=== PATIENT | female | born 1945 | race Caucasian/White ===

== ENCOUNTER 2016-10-24 18:30 | Emergency (ER) | payer MEDICARE ==
[2016-10-24 20:19] VITALS: BP 201/89
[2016-10-24] MEDS ORDERED: Sodium Chloride 0.9% 10 ML Syringe FLUSH PRN (20:27)
[2016-10-24] MEDS ORDERED: HYDROmorphone 0.5 MG/0.5 ML Syringe IVPUSH ONE (20:27)
--- NOTE | 2016-10-24 21:52 | EDM.PDOC ---
ED HPI Trauma - General Chief Complaint: Upper Extremity Injury/Pain Stated Complaint: RIGHT ARM PAIN Time Seen by Provider: 10/24/16 20:20 Source: Reports: Patient, Family History Limitations: Reports: No limitations - History of Present Illness INITIAL COMMENTS - FREE TEXT/NARRATIVE: pT WAS ON THE TREADMI[place] AND IT STARTED GOING VERY FAST. iT PULLED ON HER ARM. sHE NOW FELS LIKE HER RT ARM IS DISLOCATED. Occurred When: just prior to arrival Occurred Where: home Method of Injury: other ( PULLED ON THE ARM WHEN SHE WAS ON THE TREADMI[employer]. ) Severity: mild Pain/Injury Location: Reports: upper extremity, right Consciousness: Reports: no loss of consciousness Associated Symptoms: Reports: denies other symptoms Allergies/ADRs: Allergies clindamycin [From Cleocin] Allergy (Verified 07/13/16 06:57) Irritability Home Medications: Ambulatory Orders Aspirin [Frances Chewable Aspirin] 81 mg PO DAILY 09/08/15 [Confirmed 10/24/16] Beta-Carotene(A) w/C & E/Zn/Cu [I-Bonifacio Protect] 1 tab PO DAILY 09/08/15 [ Confirmed 10/24/16] Calcium Carbonate/Vitamin D3 [Caltrate 600+D 1500 MG-400 Units] 400 - 600 mg PO BID 09/08/15 [Confirmed 10/24/16] Cholecalciferol (Vitamin D3) [Vitamin D3] 1,000 units PO DAILY 09/08/15 [ Confirmed 10/24/16] Citalopram [Citalopram HBr] 20 mg PO DAILY 09/08/15 [Confirmed 10/24/16] Gluc 2KCl/Chondr/Juan Francisco Hy/Hy Ac [Glucosamine & Chondroitin Cap] 1 tab PO DAILY [Confirmed 10/24/16] Hydrochlorothiazide 25 mg PO DAILY 09/08/15 [Confirmed 10/24/16] Ibuprofen [Advil] 200 mg PO Q6HR PRN 09/08/15 [Confirmed 10/24/16] Loratadine 10 mg PO DAILY 09/08/15 [Confirmed 10/24/16] Metoprolol Succinate [Toprol XL 100mg] 100 mg PO DAILY 09/08/15 [Confirmed 10/24] Multivitamin/Iron/Folic Acid [Centrum Complete Multivit] 1 tab PO DAILY [Confirmed 10/24/16] atorvaSTATin [Lipitor] 10 mg PO DAILY 09/08/15 [Confirmed 10/24/16] Hydrocodone/Acetaminophen [[place]ers 5-325] 5 - 325 mg PO TID PRN 10/05/15 [ Confirmed 10/24/16] amLODIPine [Norvasc] 5 mg PO DAILY 10/05/15 [Confirmed 10/24/16] Latanoprost [Xalatan] 1 drop EYEBOTH BEDTIME 07/11/16 [Confirmed 10/24/16] Montelukast [Singulair] 10 mg PO BEDTIME 07/11/16 [Confirmed 10/24/16] Nystatin [Nystatin Crm] 1 applic TOP BID 07/11/16 [Confirmed 10/24/16] Past Medical History HEENT History: Reports: Allergic rhinitis, Cataract, Glaucoma, Impaired vision, Macular degeneration Cardiovascular History: Reports: High cholesterol, Hypertension Respiratory History: Reports: Other (see below) Other Respiratory History: pneumonia Gastrointestinal History: Reports: None Genitourinary History: Reports: Urinary incontinence Musculoskeletal History: Reports: Arthritis, Fracture, Osteoporosis, Other (see below) Other Musculoskeletal History: hammer toe left Psychiatric History: Reports: Anxiety Endocrine/Metabolic History: Reports: Osteoporosis - Infectious Disease History Infectious Disease History: Reports: Chicken pox, Measles, Mumps, Pertussis ( whooping cough) - Past Surgical History HEENT Surgical History: Reports: Cataract surgery, Laser surgery, Tonsillectomy Cardiovascular Surgical History: Reports: None Respiratory Surgical History: Reports: None GI Surgical History: Reports: Appendectomy, Cholecystectomy, Colonoscopy Female Surgical History: Reports: None Endocrine Surgical History: Reports: None Musculoskeletal Surgical History: Reports: Shoulder surgery Social & Family History - Family History Family Medical History: Noncontributory - Tobacco Use Smoking Status *Q: Never Smoker Second Hand Smoke Exposure: No - Caffeine Use Caffeine Use: Reports: Coffee - Alcohol Use Days Per Week of Alcohol Use: 2 Number of Drinks Per Day: 1 Total Drinks Per Week: 2 - Recreational Drug Use Recreational Drug Use: No Review of Systems - Review of Systems Review Of Systems: See Below Constitutional: Reports: no symptoms Eyes: Reports: no symptoms Ears: Reports: no symptoms Nose: Reports: no symptoms Mouth/Throat: Reports: no symptoms Respiratory: Reports: no symptoms Cardiovascular: Reports: no symptoms GI/Abdominal: Reports: No symptoms Genitourinary: Reports: no symptoms Musculoskeletal: Reports: other (PAINFUL RT SHOULDER. ) Skin: Reports: no symptoms Neurological: Reports: no symptoms Trauma Exam - Physical Exam Exam: See Below Text/Narrative:: pT ARRIVED WITH A PAINFUL RT SHOULDER. tHIS IS OBVIOUSLY DISLOCATED. Exam Limited By: No limitations General Appearance: Reports: alert Head: Reports: atraumatic Eyes: bilateral eye: EOMI, normal inspection, PERRL Ears: Reports: normal TMs Nose: Reports: normal inspection Throat/Mouth: Reports: Normal inspection Neck: Reports: normal inspection Respiratory Exam: Reports: no respiratory distress Cardiovascular: Reports: regular rate, rhythm Extremities: Reports: other (PT HAS A OBVIOUS DEFORMITY OF THE RT SHOULDER AND ON XRAY IT IS DISLOCATED. ) Neurologic: Reports: alert Course - Vital Signs Last Recorded V/S: Last Vital Signs Temp 36.8 C 10/24/16 21:49 Pulse 63 10/24/16 21:49 Resp 18 10/24/16 21:49 BP 201/89 H 10/24/16 21:49 Pulse Ox 98 10/24/16 21:49 - Orders/Labs/Meds Orders: Active Orders 24 hr Category Date Time Status Shoulder 1V Rt [CR] Stat Exams 10/24/16 22:09 Taken Shoulder Comp Rt [CR] Stat Exams 10/24/16 20:26 Taken Sodium Chloride 0.9% [Saline Flush] Med 10/24/16 20:27 Active 10 ml FLUSH ASDIRECTED PRN Saline Lock Insert [OM.PC] Routine Oth 10/24/16 20:27 Ordered Medication Orders Sodium Chloride (Saline Flush) 10 ml FLUSH ASDIRECTED PRN PRN Reason: Keep Vein Open Last Admin: 10/24/16 21:06 Dose: 10 ml Meds: Medications Generic Name Dose Route Start Last Admin Trade Name Freq PRN Reason Stop Dose Admin Sodium Chloride 10 ml 10/24/16 20:27 10/24/16 21:06 Saline Flush FLUSH 10 ml ASDIRECTED PRN Administration Keep Vein Open Discontinued Medications Generic Name Dose Route Start Last Admin Trade Name Freq PRN Reason Stop Dose Admin Hydromorphone HCl 0.5 mg 10/24/16 20:27 10/24/16 21:07 Dilaudid IVPUSH 10/24/16 20:28 0.5 mg ONETIME ONE Administration Propofol Confirm 10/24/16 22:22 Diprivan 20 Ml Administered 10/24/16 22:23 Dose 200 mg .ROUTE .STK-MED ONE - Re-Assessments/Exams Free Text/Narrative Re-Assessment/Exam: 10/24/16 22:49 Dennys from anesthia sedated the pt and with out difficulty the rt shoulder was reduced. A post reduction film was obtained which looked good. A shoulder imoblizer was applied and she will see ortho in the next 2 days. Departure - Departure Time of Disposition: 22:50 Disposition: DC/Tfer to Hospice - Home 50 Condition: fair Clinical Impression: Dislocation of shoulder, right, closed Forms: ED Department Discharge Care Plan Goals: motrin and norco for pain, use the shoulder imoblizer until she sees ortho. appt with ortho in 2 days. - My Orders Last 24 Hours: My Active Orders 10/24/16 20:26 Shoulder Comp Rt [CR] Stat 10/24/16 20:27 Sodium Chloride 0.9% [Saline Flush] 10 ml FLUSH ASDIRECTED PRN Saline Lock Insert [OM.PC] Routine 10/24/16 22:09 Shoulder 1V Rt [CR] Stat - Assessment/Plan Last 24 Hours: My Active Orders 10/24/16 20:26 Shoulder Comp Rt [CR] Stat 10/24/16 20:27 Sodium Chloride 0.9% [Saline Flush] 10 ml FLUSH ASDIRECTED PRN Saline Lock Insert [OM.PC] Routine 10/24/16 22:09 Shoulder 1V Rt [CR] Stat
[2016-10-24] MEDS ORDERED: Propofol 200 MG/20 ML SDV ONE (22:22)
--- NOTE | 2016-10-25 08:53 | CR ---
Shoulder Comp Rt HISTORY: Possible dislocation. COMPARISON: None FINDINGS: Anterior inferior dislocation of the right shoulder. Well-corticated bony densities projec landy adjacent to the glenoid likely representing old trauma or accessory ossification.
--- NOTE | 2016-10-25 08:53 | CR ---
Shoulder 1V Rt HISTORY: Dislocated shoulder COMPARISON: 10/24/2016. FINDINGS: Previously seen dislocation has been reduced there is excellent alignment. Arthrosis of th e AC joint with some superior bony formation.
== END 2016-10-24 23:28 | disposition hospice, home (50) ==
LOC: JP.ED 18:30
DX: S43.004A Unspecified dislocation of right shoulder joint, initial encounter (principal); I10 Essential (primary) hypertension; E78.00 Pure hypercholesterolemia, unspecified; F41.9 Anxiety disorder, unspecified; Z98.49 Cataract extraction status, unspecified eye; Z98.890 Other specified postprocedural states; Z79.82 Long term (current) use of aspirin; Z79.899 Other long term (current) drug therapy; Z88.1 Allergy status to other antibiotic agents
CPT/HCPCS: 73020; 73030; 96374; 99284; J1170; J2704; J7050; 23650

== ENCOUNTER 2017-01-09 21:56 | Emergency (ER) | payer MEDICARE ==
[2017-01-09 22:57] VITALS: BP 143/63
[2017-01-09] MEDS ORDERED: Midazolam 1 MG/ML 5 ML SDV IVPUSH ONE (23:11)
--- NOTE | 2017-01-09 23:13 | EDM.PDOC ---
[id number] Complaint: INJURED SHOULDER Time Seen by Provider: 01/09/17 23:00 Source of Information: Reports: Patient, Family History Limitations: Reports: No Limitations - History of Present Illness INITIAL COMMENTS - FREE TEXT/NARRATIVE: 6 female with recurring right shoulder dislocations was reaching out and applying pressure onto a toilet paper rack while in the bathroom and popped her right shoulder out. Onset: Sudden Duration: Hour(s): (Within the last hour) Location: Reports: Upper Extremity, Right Worsens with: Reports: Movement (Any movement causes significant pain) Right Shoulder Pain Score (Numeric/FACES): 9 - Related Data Allergies Allergy/AdvReac Type Severity Reaction Status Date / Time No Known Allergies Allergy Verified 01/09/17 22:45 Home Meds: Home Meds Aspirin [Frances Chewable Aspirin] 81 mg PO DAILY 09/08/15 [History] Beta-Carotene(A) w/C & E/Zn/Cu [I-Bonifacio Protect] 1 tab PO DAILY 09/08/15 [History ] Calcium Carbonate/Vitamin D3 [Caltrate 600+D 1500 MG-400 Units] 400 - 600 mg PO BID 09/08/15 [History] Cholecalciferol (Vitamin D3) [Vitamin D3] 1,000 units PO DAILY 09/08/15 [History ] Citalopram [Citalopram HBr] 20 mg PO DAILY 09/08/15 [History] Gluc 2KCl/Chondr/Juan Francisco Hy/Hy Ac [Glucosamine & Chondroitin Cap] 1 tab PO DAILY [History] Hydrochlorothiazide 25 mg PO DAILY 09/08/15 [History] Ibuprofen [Advil] 200 mg PO Q6HR PRN 09/08/15 [History] Loratadine 10 mg PO DAILY 09/08/15 [History] Metoprolol Succinate [Toprol XL 100mg] 100 mg PO DAILY 09/08/15 [History] Multivitamin/Iron/Folic Acid [Centrum Complete Multivit] 1 tab PO DAILY [History] atorvaSTATin [Lipitor] 10 mg PO DAILY 09/08/15 [History] Hydrocodone/Acetaminophen [[place] 5-325] 5 - 325 mg PO TID PRN 10/05/15 [History] amLODIPine [Norvasc] 5 mg PO DAILY 10/05/15 [History] Latanoprost [Xalatan] 1 drop EYEBOTH BEDTIME 07/11/16 [History] Montelukast [Singulair] 10 mg PO BEDTIME 07/11/16 [History] Nystatin [Nystatin Crm] 1 applic TOP BID 07/11/16 [History] Past Medical History HEENT History: Reports: Allergic Rhinitis, Cataract, Glaucoma, Impaired Vision, Macular Degeneration Cardiovascular History: Reports: High Cholesterol, Hypertension Respiratory History: Reports: Other (See Below) Other Respiratory History: pneumonia Gastrointestinal History: Reports: None Genitourinary History: Reports: Urinary Incontinence Musculoskeletal History: Reports: Arthritis, Fracture, Osteoporosis Other Musculoskeletal History: hammer toe left Psychiatric History: Reports: Anxiety Endocrine/Metabolic History: Reports: Osteoporosis - Infectious Disease History Infectious Disease History: Reports: Chicken Pox, Measles - Past Surgical History HEENT Surgical History: Reports: Cataract Surgery, Laser Surgery, Tonsillectomy GI Surgical History: Reports: Appendectomy, Cholecystectomy, Colonoscopy Musculoskeletal Surgical History: Reports: Carpal Tunnel, Shoulder Surgery Social & Family History - Family History Family Medical History: Noncontributory - Tobacco Use Smoking Status *Q: Never Smoker Second Hand Smoke Exposure: No - Caffeine Use Caffeine Use: Reports: Coffee - Alcohol Use Days Per Week of Alcohol Use: 2 Number of Drinks Per Day: 1 Total Drinks Per Week: 2 - Recreational Drug Use Recreational Drug Use: No Review of Systems - Review of Systems Review Of Systems: See Below Constitutional: Denies: Fever Respiratory: Denies: Shortness of Breath Cardiovascular: Denies: Chest Pain Neurological: Reports: Dizziness (Patient was lightheaded from the pain) Trauma Exam - Physical Exam Exam: See Below Exam Limited By: No Limitations General Appearance: Reports: Alert, Mild Distress (Very uncomfortable with any movement of the right arm) Head: Reports: Atraumatic Ears: Reports: Other (Hearing aids bilaterally) Respiratory Exam: Reports: No Respiratory Distress Extremities: Other (Exam of the right shoulder shows significant pain with any movement, a prominence anteriorly and a defect under the a.c. joint.) Course - Vital Signs Last Recorded V/S: Last Vital Signs Temp 96.7 F 01/09/17 22:56 Pulse 60 01/09/17 22:56 Resp 20 01/09/17 22:56 BP 143/63 H 01/09/17 22:56 Pulse Ox 97 01/09/17 22:56 - Orders/Labs/Meds Orders: Active Orders 24 hr Category Date Time Status Shoulder Comp Rt [CR] Stat Exams 01/09/17 23:24 Taken DME for Discharge [COMM] Stat Oth 01/09/17 23:36 Ordered Meds: Medications Discontinued Medications Generic Name Dose Route Start Last Admin Trade Name Talya PRN Reason Stop Dose Admin Midazolam HCl 4 mg 01/09/17 23:11 01/09/17 23:17 Versed 1 Mg/Ml IVPUSH 01/09/17 23:12 4 mg ONETIME ONE Administration - Re-Assessments/Exams Free Text/Narrative Re-Assessment/Exam: 01/09/17 23:35 Patient was given 4 mg of Versed IV and while sedated her shoulder is reduced. A postreduction x-ray confirmed proper placement and she had no pain with movement of the shoulder. She was placed in a sling until tomorrow. Departure - Departure Time of Disposition: 23:59 Disposition: Home, Self-Care 01 Condition: good Clinical Impression: Anterior dislocation of right shoulder Qualifiers: Encounter type: initial encounter Qualified Code(s): S43.014A - Anterior dislocation of right humerus, initial encounter - Discharge Information Instructions: Shoulder Dislocation, [id number] Referrals: Pippa Spence PA [Primary Care Provider] - Forms: ED Department Discharge Care Plan Goals: Remove arm from sling tomorrow and increase activity as tolerated. Consider orthopedic consultation if not already established. Return anytime if symptoms recur. - My Orders Last 24 Hours: My Active Orders 01/09/17 23:24 Shoulder Comp Rt [CR] Stat 01/09/17 23:36 DME for Discharge [COMM] Stat - Assessment/Plan Last 24 Hours: My Active Orders 01/09/17 23:24 Shoulder Comp Rt [CR] Stat 01/09/17 23:36 DME for Discharge [COMM] Stat
--- NOTE | 2017-01-10 08:31 | CR ---
Shoulder Comp Rt HISTORY: dislocation FINDINGS: No acute fracture or dislocation is identified. Bony architecture and joint spaces are preserved. Degenerative changes with dorsal osteophytes are seen at the AC joint. Right chest is clear. Soft ti ssues are unremarkable. IMPRESSION: No fracture or dislocation right shoulder is identified. Degenerative changes are noted at the AC amari int.
== END 2017-01-09 23:59 | disposition home or self-care (01) ==
LOC: JP.ED 21:56
DX: S43.014A Anterior dislocation of right humerus, initial encounter (principal); I10 Essential (primary) hypertension; E78.00 Pure hypercholesterolemia, unspecified; F41.9 Anxiety disorder, unspecified; Z98.49 Cataract extraction status, unspecified eye; Z90.49 Acquired absence of other specified parts of digestive tract; Z98.890 Other specified postprocedural states; Z79.82 Long term (current) use of aspirin; Z79.899 Other long term (current) drug therapy; X50.0XXA Overexertion from strenuous movement or load, initial encounter
CPT/HCPCS: 23650; 73030; 99284; J2250

== ENCOUNTER 2017-03-14 16:09 | Emergency (ER) | payer MEDICARE ==
[2017-03-14 16:33] VITALS: BP 164/85
[2017-03-14] MEDS ORDERED: Propofol 200 MG/20 ML SDV IVPUSH ONE (16:43)
--- NOTE | 2017-03-14 16:47 | EDM.PDOC ---
[id number] Complaint: DISLOCATED R SHOULDER Time Seen by Provider: 03/14/17 16:20 Source of Information: Reports: Patient, Family History Limitations: Reports: No Limitations - History of Present Illness INITIAL COMMENTS - FREE TEXT/NARRATIVE: 71-year-old female with recurring right shoulder dislocation is currently going through a workup by orthopedics in fact had an MRI arthrogram earlier today was just reaching out for the car door and dislocated her right shoulder. She went to the urgent care clinic where they sent her over to the emergency room. She had a very similar situation 2 months ago and reduced at that time here in the emergency room by myself. Onset: Sudden (Within the last 2 hours) Location: Reports: Upper Extremity, Right Severity: Moderate Associated Symptoms: Reports: No Other Symptoms right shoulder Pain Score (Numeric/FACES): 10 - Related Data Allergies Allergy/AdvReac Type Severity Reaction Status Date / Time No Known Allergies Allergy Verified 03/14/17 16:35 Home Meds: Home Meds Aspirin [Frances Chewable Aspirin] 81 mg PO DAILY 09/08/15 [History] Beta-Carotene(A) w/C & E/Zn/Cu [I-Bonifacio Protect] 1 tab PO DAILY 09/08/15 [History ] Calcium Carbonate/Vitamin D3 [Caltrate 600+D 1500 MG-400 Units] 400 - 600 mg PO BID 09/08/15 [History] Cholecalciferol (Vitamin D3) [Vitamin D3] 1,000 units PO DAILY 09/08/15 [History ] Citalopram [Citalopram HBr] 20 mg PO DAILY 09/08/15 [History] Gluc 2KCl/Chondr/Juan Francisco Hy/Hy Ac [Glucosamine & Chondroitin Cap] 1 tab PO DAILY [History] Hydrochlorothiazide 25 mg PO DAILY 09/08/15 [History] Ibuprofen [Advil] 200 mg PO Q6HR PRN 09/08/15 [History] Loratadine 10 mg PO DAILY 09/08/15 [History] Metoprolol Succinate [Toprol XL 100mg] 100 mg PO DAILY 09/08/15 [History] Multivitamin/Iron/Folic Acid [Centrum Complete Multivit] 1 tab PO DAILY [History] atorvaSTATin [Lipitor] 10 mg PO DAILY 09/08/15 [History] Hydrocodone/Acetaminophen [[place] 5-325] 5 - 325 mg PO TID PRN 10/05/15 [History] amLODIPine [Norvasc] 5 mg PO DAILY 10/05/15 [History] Latanoprost [Xalatan] 1 drop EYEBOTH BEDTIME 07/11/16 [History] Montelukast [Singulair] 10 mg PO BEDTIME 07/11/16 [History] Nystatin [Nystatin Crm] 1 applic TOP BID 07/11/16 [History] Past Medical History HEENT History: Reports: Allergic Rhinitis, Cataract, Glaucoma, Impaired Vision, Macular Degeneration Cardiovascular History: Reports: High Cholesterol, Hypertension Respiratory History: Reports: Other (See Below) Other Respiratory History: pneumonia Gastrointestinal History: Reports: None Genitourinary History: Reports: Urinary Incontinence Musculoskeletal History: Reports: Arthritis, Fracture, Osteoporosis Other Musculoskeletal History: hammer toe left Psychiatric History: Reports: Anxiety Endocrine/Metabolic History: Reports: Osteoporosis - Infectious Disease History Infectious Disease History: Reports: Chicken Pox, Measles - Past Surgical History HEENT Surgical History: Reports: Cataract Surgery, Laser Surgery, Tonsillectomy GI Surgical History: Reports: Appendectomy, Cholecystectomy, Colonoscopy Musculoskeletal Surgical History: Reports: Carpal Tunnel, Shoulder Surgery Social & Family History - Family History Family Medical History: Noncontributory - Tobacco Use Smoking Status *Q: Never Smoker Second Hand Smoke Exposure: No - Caffeine Use Caffeine Use: Reports: Coffee - Alcohol Use Days Per Week of Alcohol Use: 2 Number of Drinks Per Day: 1 Total Drinks Per Week: 2 - Recreational Drug Use Recreational Drug Use: No Review of Systems - Review of Systems Review Of Systems: See Below Constitutional: Denies: Fever Ears: Reports: Other (Very hard of hearing) Respiratory: Denies: Shortness of Breath Skin: Reports: No Symptoms ED EXAM, GENERAL - Physical Exam Exam: See Below Exam Limited By: No Limitations General Appearance: Alert, Mild Distress (Okay) Respiratory/Chest: No Respiratory Distress Extremities: Other (Patient is unable to move the right shoulder due to pain, there is a defect under the distal clavicle with anterior prominence of the shoulder) Course - Vital Signs Last Recorded V/S: Last Vital Signs Temp 98.4 F 03/14/17 16:31 Pulse 58 L 03/14/17 16:31 Resp 16 03/14/17 16:31 BP 164/85 H 03/14/17 16:31 Pulse Ox 95 03/14/17 16:31 - Orders/Labs/Meds Orders: Active Orders 24 hr Category Date Time Status Shoulder 1V Rt [CR] Stat Exams 03/14/17 16:40 Taken Shoulder 1V Rt [CR] Stat Exams 03/14/17 17:18 Taken Meds: Medications Discontinued Medications Generic Name Dose Route Start Last Admin Trade Name Talya PRN Reason Stop Dose Admin Propofol 60 mg 03/14/17 16:43 03/14/17 17:10 Diprivan 20 Ml IVPUSH 03/14/17 16:44 60 mg ONETIME ONE Administration - Re-Assessments/Exams Free Text/Narrative Re-Assessment/Exam: 03/14/17 16:46 An IV was started, patient was given 60 mg of IV propofol after a 1 view shoulder x-ray confirmed an anterior dislocation. 03/14/17 17:28 Countertraction was applied and the shoulder reduced without difficulty. The confirmation x-ray was obtained which showed no fracture and reduction was successful, symptoms had resolved. She was encouraged to wear her sling for the next few days. Departure - Departure Time of Disposition: 17:58 Disposition: Home, Self-Care 01 Condition: Good Clinical Impression: Anterior dislocation of right shoulder Qualifiers: Encounter type: initial encounter Qualified Code(s): S43.014A - Anterior dislocation of right humerus, initial encounter - Discharge Information Instructions: Shoulder Dislocation, [id number] Referrals: Pippa Spence PA [Primary Care Provider] - Forms: ED Department Discharge Care Plan Goals: Sling arm for the next few days and slowly increase activity as tolerated. Return if problems or concerns. - My Orders Last 24 Hours: My Active Orders 03/14/17 16:40 Shoulder 1V Rt [CR] Stat - Assessment/Plan Last 24 Hours: My Active Orders 03/14/17 16:40 Shoulder 1V Rt [CR] Stat
--- NOTE | 2017-03-15 09:02 | CR ---
Shoulder 1V Rt HISTORY: Dislocation. COMPARISON: 03/14/2017 earlier today FINDINGS: Anterior inferior dislocation has been reduced. No acute fracture seen. Hill-Sachs deformi ty in the superior lateral humeral head noted.
--- NOTE | 2017-03-15 09:03 | CR ---
Shoulder 1V Rt HISTORY: Pain COMPARISON: 10/24/2016. FINDINGS: Anterior inferior dislocation right shoulder. No acute fracture.
== END 2017-03-14 17:59 | disposition home or self-care (01) ==
LOC: JP.ED 16:09
DX: S43.014A Anterior dislocation of right humerus, initial encounter (principal); I10 Essential (primary) hypertension; E78.00 Pure hypercholesterolemia, unspecified; M19.90 Unspecified osteoarthritis, unspecified site; F41.9 Anxiety disorder, unspecified; Z98.49 Cataract extraction status, unspecified eye; Z98.890 Other specified postprocedural states; Z90.49 Acquired absence of other specified parts of digestive tract; Z87.01 Personal history of pneumonia (recurrent); M81.0 Age-related osteoporosis without current pathological fracture; Z79.899 Other long term (current) drug therapy; Z79.82 Long term (current) use of aspirin; X58.XXXA Exposure to other specified factors, initial encounter; M25.311 Other instability, right shoulder; M75.121 Complete rotator cuff tear or rupture of right shoulder, not specified as traumatic; S46.911A Strain of unspecified muscle, fascia and tendon at shoulder and upper arm level, right arm, initial encounter; S43.401A Unspecified sprain of right shoulder joint, initial encounter
CPT/HCPCS: 23650; 73020; 73040; 73222; 96374; 99283; 99284; A9576; J2704; J7050

== ENCOUNTER 2017-08-25 14:42 | Emergency (ER) | payer MEDICARE ==
[2017-08-25 15:39] VITALS: BP 117/39
--- NOTE | 2017-08-25 15:45 | EDM.PDOC ---
ED HPI GENERAL MEDICAL PROBLEM - General Chief Complaint: Back Pain or Injury Stated Complaint: BACK PAIN Time Seen by Provider: 08/25/17 15:15 Source of Information: Reports: Patient History Limitations: Reports: No Limitations - History of Present Illness INITIAL COMMENTS - FREE TEXT/NARRATIVE: 72-year-old female was doing some exercises 2 days ago when she felt a pull in her right lower back. It's very painful to bend over and she was having trouble getting her socks on today, she was evaluated by a home health nurse and felt she should be evaluated. She did not fall or have any direct trauma to her back. She can still freely move both hips and knees while lying supine. There is some pulling sensation and pain when she tries to sit up. Onset: Sudden (2 days ago) Location: Reports: Back Severity: Mild Associated Symptoms: Reports: No Other Symptoms Right Lower Back Pain Score (Numeric/FACES): 9 - Related Data Allergies Allergy/AdvReac Type Severity Reaction Status Date / Time No Known Allergies Allergy Verified 08/25/17 15:04 Home Meds: Home Meds Aspirin [Frances Chewable Aspirin] 81 mg PO DAILY 09/08/15 [History] Beta-Carotene(A) w/C & E/Zn/Cu [I-Bonifacio Protect] 1 tab PO DAILY 09/08/15 [History ] Calcium Carbonate/Vitamin D3 [Caltrate 600+D 1500 MG-400 Units] 400 - 600 mg PO BID 09/08/15 [History] Cholecalciferol (Vitamin D3) [Vitamin D3] 1,000 units PO DAILY 09/08/15 [History ] Citalopram [Citalopram HBr] 20 mg PO DAILY 09/08/15 [History] Gluc 2KCl/Chondr/Juan Francisco Hy/Hy Ac [Glucosamine & Chondroitin Cap] 1 tab PO DAILY [History] Hydrochlorothiazide 25 mg PO DAILY 09/08/15 [History] Ibuprofen [Advil] 200 mg PO Q6HR PRN 09/08/15 [History] Loratadine 10 mg PO DAILY 09/08/15 [History] Metoprolol Succinate [Toprol XL 100mg] 100 mg PO DAILY 09/08/15 [History] Multivitamin/Iron/Folic Acid [Centrum Complete Multivit] 1 tab PO DAILY [History] atorvaSTATin [Lipitor] 10 mg PO DAILY 09/08/15 [History] Hydrocodone/Acetaminophen [[place] 5-325] 5 - 325 mg PO TID PRN 10/05/15 [History] amLODIPine [Norvasc] 5 mg PO DAILY 10/05/15 [History] Latanoprost [Xalatan] 1 drop EYEBOTH BEDTIME 07/11/16 [History] Montelukast [Singulair] 10 mg PO BEDTIME 07/11/16 [History] Nystatin [Nystatin Crm] 1 applic TOP BID 07/11/16 [History] Past Medical History HEENT History: Reports: Allergic Rhinitis, Cataract, Glaucoma, Impaired Vision, Macular Degeneration Cardiovascular History: Reports: High Cholesterol, Hypertension Respiratory History: Reports: Other (See Below) Other Respiratory History: pneumonia Gastrointestinal History: Reports: None Genitourinary History: Reports: Urinary Incontinence Musculoskeletal History: Reports: Arthritis, Fracture, Osteoporosis Other Musculoskeletal History: hammer toe left Psychiatric History: Reports: Anxiety Endocrine/Metabolic History: Reports: Osteoporosis - Infectious Disease History Infectious Disease History: Reports: Chicken Pox, Measles - Past Surgical History HEENT Surgical History: Reports: Cataract Surgery, Laser Surgery, Tonsillectomy GI Surgical History: Reports: Appendectomy, Cholecystectomy, Colonoscopy Musculoskeletal Surgical History: Reports: Carpal Tunnel, Shoulder Surgery Social & Family History - Family History Family Medical History: Noncontributory - Tobacco Use Smoking Status *Q: Unknown Ever Smoked Second Hand Smoke Exposure: No - Caffeine Use Caffeine Use: Reports: Coffee - Alcohol Use Days Per Week of Alcohol Use: 2 Number of Drinks Per Day: 1 Total Drinks Per Week: 2 - Recreational Drug Use Recreational Drug Use: No ED ROS GENERAL - Review of Systems Review Of Systems: See Below Constitutional: Denies: Fever, Chills Respiratory: Denies: Shortness of Breath Cardiovascular: Denies: Chest Pain GI/Abdominal: Denies: Abdominal Pain, Nausea, Vomiting : Reports: No Symptoms Skin: Denies: Bruising Neurological: Denies: Paresthesia ED EXAM,LOWER BACK PAIN/INJURY - Physical Exam Exam: See Below Exam Limited By: No Limitations General Appearance: Alert, No Apparent Distress Respiratory/Chest: No Respiratory Distress Back Exam: Paraspinal Tenderness (Patient had some local paraspinous discomfort with palpation just to the right of L4-L5. No bony percussion tenderness.). No : CVA Tenderness (R), CVA Tenderness (L), Vertebral Tenderness Neurological: Alert, Normal Mood/Affect, No Motor/Sensory Deficits. No: Straight Leg Raise (L), Straight Leg Raise (R) Course - Vital Signs Last Recorded V/S: Last Vital Signs Temp 102.0 F H 08/25/17 15:38 Pulse 66 08/25/17 15:18 Resp 15 08/25/17 15:38 BP 117/39 L 08/25/17 15:38 Pulse Ox 95 08/25/17 15:38 - Re-Assessments/Exams Free Text/Narrative Re-Assessment/Exam: 08/25/17 15:43 Encouraged the patient to just stay active, continue with gentle range of motion and anti-inflammatories. She was given 10 Vicodin to use for extra pain control when trying to get rest. She can recheck if worsening early next week. Departure - Departure Time of Disposition: 15:42 Disposition: Home, Self-Care 01 Condition: Good Clinical Impression: Low back pain Qualifiers: Chronicity: acute Back pain laterality: right Sciatica presence: without sciatica Qualified Code(s): M54.5 - Low back pain - Discharge Information Instructions: Back Pain, Adult, [id number] Referrals: Pippa Spence PA [Primary Care Provider] - Forms: ED Department Discharge Care Plan Goals: Increase activity as tolerated. Continue with Tylenol and ibuprofen, add stronger pain medications as prescribed if needed. Consider rechecking next Monday or Monday if not improving satisfactorily.
== END 2017-08-25 15:43 | disposition home or self-care (01) ==
LOC: JP.ED 14:42
DX: M54.5 Low back pain (principal); I10 Essential (primary) hypertension; E78.00 Pure hypercholesterolemia, unspecified; Z79.899 Other long term (current) drug therapy
CPT/HCPCS: 99283

== ENCOUNTER 2018-01-11 20:34 | Emergency (ER) | payer MEDICARE, MEDICAID ==
[2018-01-11 21:08] VITALS: BP 145/64
[2018-01-11] MEDS ORDERED: Bacitracin Oint 1 GM U/D Packet TOP ONE (21:13)
--- NOTE | 2018-01-11 21:20 | EDM.PDOC ---
ED HPI GENERAL MEDICAL PROBLEM - General Chief Complaint: Bite:Animal, Insect Stated Complaint: CAT BITE Time Seen by Provider: 01/11/18 20:54 Source of Information: Reports: Patient, Family (Sister) History Limitations: Reports: No Limitations - History of Present Illness INITIAL COMMENTS - FREE TEXT/NARRATIVE: cat bite; this is a 72 year old female presents to ER with Sister, reports earlier this evening, she was going to pet the cat, when he bite her. The cat is a farm cat and is outside and not used to being handled. He appears to be healthy per Family. No signs of illness. last Td one year ago. 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) - Related Data Allergies Allergy/AdvReac Type Severity Reaction Status Date / Time No Known Allergies Allergy Verified 08/25/17 15:04 Home Meds: Home Meds Aspirin [Frances Chewable Aspirin] 81 mg PO DAILY 09/08/15 [History] Beta-Carotene(A) w/C & E/Zn/Cu [I-Bonifacio Protect] 1 tab PO DAILY 09/08/15 [History ] Calcium Carbonate/Vitamin D3 [Caltrate 600+D 1500 MG-400 Units] 400 - 600 mg PO BID 09/08/15 [History] Cholecalciferol (Vitamin D3) [Vitamin D3] 1,000 units PO DAILY 09/08/15 [History ] Citalopram [Citalopram HBr] 20 mg PO DAILY 09/08/15 [History] Gluc 2KCl/Chondr/Juan Francisco Hy/Hy Ac [Glucosamine & Chondroitin Cap] 1 tab PO DAILY [History] Hydrochlorothiazide 25 mg PO DAILY 09/08/15 [History] Ibuprofen [Advil] 200 mg PO Q6HR PRN 09/08/15 [History] Loratadine 10 mg PO DAILY 09/08/15 [History] Metoprolol Succinate [Toprol XL 100mg] 100 mg PO DAILY 09/08/15 [History] Multivitamin/Iron/Folic Acid [Centrum Complete Multivit] 1 tab PO DAILY [History] atorvaSTATin [Lipitor] 10 mg PO DAILY 09/08/15 [History] Hydrocodone/Acetaminophen [[place] 5-325] 5 - 325 mg PO TID PRN 10/05/15 [History] amLODIPine [Norvasc] 5 mg PO DAILY 10/05/15 [History] Latanoprost [Xalatan] 1 drop EYEBOTH BEDTIME 07/11/16 [History] Montelukast [Singulair] 10 mg PO BEDTIME 07/11/16 [History] Nystatin [Nystatin Crm] 1 applic TOP BID 07/11/16 [History] Past Medical History HEENT History: Reports: Allergic Rhinitis, Cataract, Glaucoma, Impaired Vision, Macular Degeneration Cardiovascular History: Reports: High Cholesterol, Hypertension Respiratory History: Reports: Other (See Below) Other Respiratory History: pneumonia Gastrointestinal History: Reports: None Genitourinary History: Reports: Urinary Incontinence Musculoskeletal History: Reports: Arthritis, Fracture, Osteoporosis Other Musculoskeletal History: hammer toe left Psychiatric History: Reports: Anxiety Endocrine/Metabolic History: Reports: Osteoporosis - Infectious Disease History Infectious Disease History: Reports: Chicken Pox, Measles - Past Surgical History HEENT Surgical History: Reports: Cataract Surgery, Laser Surgery, Tonsillectomy GI Surgical History: Reports: Appendectomy, Cholecystectomy, Colonoscopy Musculoskeletal Surgical History: Reports: Carpal Tunnel, Shoulder Surgery Social & Family History - Family History Family Medical History: Noncontributory - Caffeine Use Caffeine Use: Reports: Coffee ED ROS GENERAL - Review of Systems Review Of Systems: See Below Constitutional: Reports: No Symptoms HEENT: Reports: No Symptoms Respiratory: Reports: No Symptoms Cardiovascular: Reports: No Symptoms Endocrine: Reports: No Symptoms Skin: Reports: Other (cat bite to the right hand) Neurological: Reports: No Symptoms Psychiatric: Reports: No Symptoms Hematologic/Lymphatic: Reports: No Symptoms Immunologic: Reports: No Symptoms ED EXAM, ANIMAL BITE - Physical Exam Exam: See Below Exam Limited By: No Limitations General Appearance: Alert, WD/WN, No Apparent Distress Extremities: Other (right hand with puncture wound at the base of thumb, scratch across the palm. no active bleeding.) Neurological: Alert, Oriented, No Motor/Sensory Deficits Psychiatric: Normal Affect, Normal Mood Skin Exam: Normal Color, Other (cat bite and scratch to the right thumb and across the palm of hand. no active bleeding.) Lymphatic: No Adenopathy Course - Vital Signs Last Recorded V/S: Last Vital Signs Temp 37.1 C 05/17/18 21:22 Pulse 73 01/11/18 21:22 Resp 16 01/11/18 21:22 BP 145/64 H 01/11/18 21:22 Pulse Ox 95 01/11/18 21:22 - Orders/Labs/Meds Orders: Active Orders 24 hr Category Date Time Status Dressing Change [Wound Care] [RC] DAILY Care 01/11/18 21:13 Active Meds: Medications Discontinued Medications Generic Name Dose Route Start Last Admin Trade Name Talya PRN Reason Stop Dose Admin Bacitracin 1 dose 01/11/18 21:13 01/11/18 21:36 Bacitracin Oint 1 Gm TOP 01/11/18 21:14 1 dose ONETIME ONE Administration - Re-Assessments/Exams Free Text/Narrative Re-Assessment/Exam: 01/11/18 21:25 wound cleanse, bacitracin ointment applied and bandaged. Departure - Departure Time of Disposition: 21:47 Disposition: Home, Self-Care 01 Condition: Good Clinical Impression: Cat bite of right hand Qualifiers: Encounter type: initial encounter Qualified Code(s): S61.451A - Open bite of right hand, initial encounter - Discharge Information Instructions: Animal Bite, [id number] Referrals: Pippa Spence PA [Primary Care Provider] - Forms: ED Department Discharge Care Plan Goals: Cat bite -start tonight; Augmentin 875mg take one two times a day for 10 days -apply bactroban or other antibiotic cream to wounds two to three times a day til scabbed over -change bandage two times a day for 3 days then keep clean and dry wound check in 2 to 3 days return to ER for any increased redness, swelling, pain or not improved - Problem List & Annotations (1) Cat bite of right hand SNOMED Code(s): 678576894 Code(s): S61.451A - OPEN BITE OF RIGHT HAND, INITIAL ENCOUNTER; W55.01XA - BITTEN BY CAT, INITIAL ENCOUNTER Status: Acute Priority: High Current Visit: Yes Qualifiers: Encounter type: initial encounter Qualified Code(s): S61.451A - Open bite of right hand, initial encounter; W55.01XA - Bitten by cat, initial encounter - Problem List Review Problem List Initiated/Reviewed/Updated: Yes - My Orders Last 24 Hours: My Active Orders 01/11/18 21:13 Dressing Change [Wound Care] [RC] DAILY - Assessment/Plan Last 24 Hours: My Active Orders 01/11/18 21:13 Dressing Change [Wound Care] [RC] DAILY Plan: Cat bite -start tonight; Augmentin 875mg take one two times a day for 10 days -apply bactroban or other antibiotic cream to wounds two to three times a day til scabbed over -change bandage two times a day for 3 days then keep clean and dry wound check in 2 to 3 days return to ER for any increased redness, swelling, pain or not improved
== END 2018-01-11 22:00 | disposition home or self-care (01) ==
LOC: JP.ED 20:34
DX: S61.451A Open bite of right hand, initial encounter (principal); E78.00 Pure hypercholesterolemia, unspecified; I10 Essential (primary) hypertension; Z79.82 Long term (current) use of aspirin; Z79.899 Other long term (current) drug therapy; W55.01XA Bitten by cat, initial encounter
CPT/HCPCS: 99283

== ENCOUNTER 2018-09-08 13:17 | Emergency (ER) | payer MEDICAID, MEDICARE ==
[2018-09-08] MEDS ORDERED: Sodium Chloride 0.9% 10 ML Syringe FLUSH PRN (14:04)
[2018-09-08] MEDS ORDERED: HYDROmorphone 1 MG/ML Syringe IVPUSH ONE (14:05)
--- NOTE | 2018-09-08 14:12 | EDM.PDOC ---
ED HPI GENERAL MEDICAL PROBLEM - General Chief Complaint: Upper Extremity Injury/Pain Stated Complaint: FALL RIGHT SHOULDER PAIN Time Seen by Provider: 09/08/18 14:00 Source of Information: Reports: Patient, Old Records, Other (friend) History Limitations: Reports: Other (Poor historian, but the [employer] driver/friend was a good resource. ) - History of Present Illness INITIAL COMMENTS - FREE TEXT/NARRATIVE: 73 yo female with a pHx of R shoulder surgery for recurrent dislocations tripped in her [facility] earlier today and injured her R shoulder. No other injuries in the fall. Here for eval. Onset: Today Onset Date: 09/08/18 Onset Time: 11:40 Duration: Hour(s):, Constant Location: Reports: Upper Extremity, Right Quality: Reports: Ache Severity: Moderate Improves with: Reports: Rest Worsens with: Reports: Movement Context: Reports: Trauma Associated Symptoms: Reports: No Other Symptoms Treatments BUTCHER ALL ROUND: Reports: Other (see below) (none) Right Shoulder Pain Score (Numeric/FACES): 7 - Related Data Allergies Allergy/AdvReac Type Severity Reaction Status Date / Time No Known Allergies Allergy Verified 08/25/17 15:04 Home Meds: Home Meds Aspirin [Frances Chewable Aspirin] 81 mg PO DAILY 09/08/15 [History] Beta-Carotene(A) w/C & E/Zn/Cu [I-Bonifacio Protect] 1 tab PO DAILY 09/08/15 [History ] Calcium Carbonate/Vitamin D3 [Caltrate 600+D 1500 MG-400 Units] 400 - 600 mg PO BID 09/08/15 [History] Cholecalciferol (Vitamin D3) [Vitamin D3] 1,000 units PO DAILY 09/08/15 [History ] Citalopram [Citalopram HBr] 20 mg PO DAILY 09/08/15 [History] Gluc 2KCl/Chondr/Juan Francisco Hy/Hy Ac [Glucosamine & Chondroitin Cap] 1 tab PO DAILY [History] Hydrochlorothiazide 25 mg PO DAILY 09/08/15 [History] Ibuprofen [Advil] 200 mg PO Q6HR PRN 09/08/15 [History] Loratadine 10 mg PO DAILY 09/08/15 [History] Metoprolol Succinate [Toprol XL 100mg] 100 mg PO DAILY 09/08/15 [History] Multivitamin/Iron/Folic Acid [Centrum Complete Multivit] 1 tab PO DAILY [History] atorvaSTATin [Lipitor] 10 mg PO DAILY 09/08/15 [History] amLODIPine [Norvasc] 5 mg PO DAILY 10/05/15 [History] Latanoprost [Xalatan] 1 drop EYEBOTH BEDTIME 07/11/16 [History] Montelukast [Singulair] 10 mg PO BEDTIME 07/11/16 [History] Nystatin [Nystatin Crm] 1 applic TOP BID 07/11/16 [History] Acetaminophen/HYDROcodone [[place] 325-5 MG] 1 tab PO Q4H PRN #10 tab 09/08/18 [Rx ] Past Medical History HEENT History: Reports: Allergic Rhinitis, Cataract, Glaucoma, Impaired Vision, Macular Degeneration Cardiovascular History: Reports: High Cholesterol, Hypertension Respiratory History: Reports: Other (See Below) Other Respiratory History: pneumonia Gastrointestinal History: Reports: None Genitourinary History: Reports: Urinary Incontinence Musculoskeletal History: Reports: Arthritis, Fracture, Osteoporosis Other Musculoskeletal History: hammer toe left Psychiatric History: Reports: Anxiety Endocrine/Metabolic History: Reports: Osteoporosis - Infectious Disease History Infectious Disease History: Reports: Chicken Pox, Measles - Past Surgical History HEENT Surgical History: Reports: Cataract Surgery, Laser Surgery, Tonsillectomy GI Surgical History: Reports: Appendectomy, Cholecystectomy, Colonoscopy Musculoskeletal Surgical History: Reports: Carpal Tunnel, Shoulder Surgery Social & Family History - Family History Family Medical History: Noncontributory - Tobacco Use Smoking Status *Q: Never Smoker - Caffeine Use Caffeine Use: Reports: Coffee - Recreational Drug Use Recreational Drug Use: No Review of Systems - Review of Systems Review Of Systems: See Below Constitutional: Reports: No Symptoms Eyes: Reports: No Symptoms Ears: Reports: No Symptoms Nose: Reports: No Symptoms Mouth/Throat: Reports: No Symptoms Respiratory: Reports: No Symptoms Cardiovascular: Reports: No Symptoms GI/Abdominal: Reports: No Symptoms Genitourinary: Reports: No Symptoms Musculoskeletal: Reports: Shoulder Pain (right) Skin: Reports: No Symptoms ED EXAM, GENERAL - Physical Exam Exam: See Below Exam Limited By: No Limitations General Appearance: Alert, WD/WN, No Apparent Distress Eye Exam: Bilateral Eye: Normal Inspection Ears: Normal External Exam, Normal Canal, Hearing Loss Ear Exam: Bilateral Ear: Auricle Normal Nose: Normal Inspection, No Blood Throat/Mouth: Normal Inspection, Normal Oropharynx, Normal Voice, No Airway Compromise Head: Atraumatic, Normocephalic Neck: Normal Inspection Respiratory/Chest: No Respiratory Distress, No Accessory Muscle Use Cardiovascular: Regular Rate, Rhythm, No Edema Back Exam: Normal Inspection Extremities: No Pedal Edema, Arm Pain (R shoulder), Limited Range of Motion (Of R arm). No: Non-Tender, Pedal Edema, Increased Warmth, Redness Neurological: Alert, Oriented, CN II-XII Intact, Normal Cognition, No Motor/ Sensory Deficits Psychiatric: Normal Affect, Normal Mood Skin Exam: Warm, Dry, Intact, Normal Color, No Rash Course - Vital Signs Text/Narrative:: Shoulder reduced with traction under anesthesia per SWATCH FOLDER. Post-reduction R shoulder [id number] reduction Sling applied by RN Last Recorded V/S: Last Vital Signs Temp 36.6 C 09/08/18 13:58 Pulse 68 09/08/18 15:12 Resp 16 09/08/18 13:58 BP 104/52 L 09/08/18 15:12 Pulse Ox 97 09/08/18 15:12 - Orders/Labs/Meds Orders: Active Orders 24 hr Category Date Time Status Shoulder 1V Rt [CR] Stat Exams 09/08/18 14:05 Taken Shoulder 1V Rt [CR] Stat Exams 09/08/18 15:02 Taken Sodium Chloride 0.9% [Saline Flush] Med 09/08/18 14:04 Active 10 ml FLUSH ASDIRECTED PRN Saline Lock Insert [OM.PC] Routine Oth 09/08/18 14:04 Ordered Medication Orders Sodium Chloride (Saline Flush) 10 ml FLUSH ASDIRECTED PRN PRN Reason: Keep Vein Open Last Admin: 09/08/18 14:10 Dose: 10 ml Meds: Medications Generic Name Dose Route Start Last Admin Trade Name Freq PRN Reason Stop Dose Admin Sodium Chloride 10 ml 09/08/18 14:04 09/08/18 14:10 Saline Flush FLUSH 10 ml ASDIRECTED PRN Administration Keep Vein Open Discontinued Medications Generic Name Dose Route Start Last Admin Trade Name Freq PRN Reason Stop Dose Admin Hydromorphone HCl 1 mg 09/08/18 14:05 09/08/18 14:13 Dilaudid IVPUSH 09/08/18 14:06 1 mg ONETIME ONE Administration Propofol Confirm 09/08/18 15:10 Diprivan 20 Ml Administered 09/08/18 15:11 Dose 200 mg .ROUTE .STK-MED ONE - Radiology Interpretation Free Text/Narrative:: R shoulder [id number] Departure - Departure Time of Disposition: 15:45 Disposition: Home, Self-Care 01 Condition: Good Clinical Impression: Anterior shoulder dislocation Qualifiers: Encounter type: initial encounter Laterality: right Qualified Code(s): S43.014A - Anterior dislocation of right humerus, initial encounter - Discharge Information *PRESCRIPTION DRUG MONITORING PROGRAM REVIEWED*: No *COPY OF PRESCRIPTION DRUG MONITORING REPORT IN PATIENT [place]: No Prescriptions: Acetaminophen/HYDROcodone [[place] 325-5 MG] 1 tab PO Q4H PRN #10 tab PRN Reason: Pain Instructions: Shoulder Dislocation, Recurrent Shoulder Laxity and Instability Referrals: Pippa Spence PA [Primary Care Provider] - Forms: ED Department Discharge Additional Instructions: Take [place] for pain relief if acetaminophen and/or ibuprofen is not strong enough. Wear your sling for support for the next several days. See your doctor for recheck this next week. Return as needed. - My Orders Last 24 Hours: My Active Orders 09/08/18 14:04 Sodium Chloride 0.9% [Saline Flush] 10 ml FLUSH ASDIRECTED PRN Saline Lock Insert [OM.PC] Routine 09/08/18 14:05 Shoulder 1V Rt [CR] Stat 09/08/18 15:02 Shoulder 1V Rt [CR] Stat - Assessment/Plan Last 24 Hours: My Active Orders 09/08/18 14:04 Sodium Chloride 0.9% [Saline Flush] 10 ml FLUSH ASDIRECTED PRN Saline Lock Insert [OM.PC] Routine 09/08/18 14:05 Shoulder 1V Rt [CR] Stat 09/08/18 15:02 Shoulder 1V Rt [CR] Stat
[2018-09-08] MEDS ORDERED: Propofol 200 MG/20 ML SDV ONE (15:10)
[2018-09-08 15:43] VITALS: BP 142/70
--- NOTE | 2018-09-10 08:51 | CR ---
Shoulder 1V Rt CLINICAL HISTORY: Pain FINDINGS: There is an inferior dislocation of the humerus. This appears to be an anterior dislocation. There is some ossific density just lateral to the glenoid which may represent the some labral calcification or possibly marginal avulsion. There are degenerative changes in the AC joint. Impression: Humeral dislocation Calcification or ossification near the glenoid margin. Marginal avulsion is not excluded
--- NOTE | 2018-09-10 08:52 | CR ---
Shoulder 1V Rt CLINICAL HISTORY: Dislocation FINDINGS: Previous anterior dislocation has been reduced. There are some osteophytic changes in the AC joint. Impression: Status post reduction of right humeral dislocation
== END 2018-09-08 16:12 | disposition home or self-care (01) ==
LOC: JP.ED 13:17
DX: S43.014A Anterior dislocation of right humerus, initial encounter (principal); I10 Essential (primary) hypertension; W01.0XXA Fall on same level from slipping, tripping and stumbling without subsequent striking against object, initial encounter; Z79.899 Other long term (current) drug therapy
CPT/HCPCS: 23650; 73020; 96374; 99284; J1170; J2704

== ENCOUNTER 2020-06-07 13:01 | Emergency (ER) | payer MEDICARE ==
[2020-06-07] MEDS ORDERED: Acetaminophen/HYDROcodone 325-5 MG Tab PO ONE (15:30)
[2020-06-07] MEDS ORDERED: Propofol 200 MG/20 ML SDV IVPUSH ONE ×2 (15:55→17:00)
[2020-06-07] MEDS ORDERED: Sodium Chloride 0.9% 10 ML Syringe FLUSH PRN (15:55)
--- NOTE | 2020-06-07 15:55 | EDM.PDOC ---
ED HPI GENERAL MEDICAL PROBLEM - General Chief Complaint: Upper Extremity Injury/Pain Stated Complaint: R SHOULDER PAIN Time Seen by Provider: 06/07/20 15:30 Source of Information: Reports: Patient, RN - History of Present Illness INITIAL COMMENTS - FREE TEXT/NARRATIVE: Valery is a 74 year old female whom presents to [facility] due to right shoulder pain. Valery reports walking with a wheel [place] at home when she backed into a pole results in right shoulder pain. Valery denies fall or significant injury. Valery took Tylenol last evening after supper with minimal improvement of pain. Valery use a ice pack last night but was unable to use arm. Valery thought symptoms would be improved this am but continued pain. Valery ate breakfast around 10:30 today. Valery did not eat lunch and was brought to ER by friend for evaluation today. Valery reports history of dislocation in the remote past. - Related Data Allergies Allergy/AdvReac Type Severity Reaction Status Date / Time No Known Allergies Allergy Verified 06/07/20 14:42 Home Meds: Home Meds Aspirin [Frances Chewable Aspirin] 81 mg PO DAILY 09/08/15 [History] Cholecalciferol (Vitamin D3) [Vitamin D3] 1,000 units PO DAILY 09/08/15 [History] Citalopram [Citalopram HBr] 20 mg PO DAILY 09/08/15 [History] Glucosam/Chondr/Collagn/Hyalur [Glucosamine & Chondroitin Cap] 1 tab PO DAILY 09/08/15 [History] Hydrochlorothiazide 25 mg PO DAILY 09/08/15 [History] Ibuprofen [Advil] 200 mg PO Q6HR PRN 09/08/15 [History] Loratadine 10 mg PO DAILY 09/08/15 [History] Metoprolol Succinate [Toprol XL 100mg] 100 mg PO DAILY 09/08/15 [History] Multivitamin/Iron/Folic Acid [Centrum Complete Multivit] 1 tab PO DAILY 09/08/15 [History] amLODIPine [Norvasc] 5 mg PO DAILY 10/05/15 [History] Latanoprost [Xalatan] 1 drop EYEBOTH BEDTIME 07/11/16 [History] Montelukast [Singulair] 10 mg PO BEDTIME 07/11/16 [History] Nystatin [Nystatin Crm] 1 applic TOP BID 07/11/16 [History] Acetaminophen/HYDROcodone [Bivins 325-5 MG] 1 tab PO Q4H PRN #10 tab 09/08/18 [Rx] Acetaminophen/HYDROcodone [Bivins 325-5 MG] 1 - 2 tab PO Q6H PRN 5 Days #12 tab 06/07/20 [Rx] Past Medical History HEENT History: Reports: Allergic Rhinitis, Cataract, Glaucoma, Impaired Vision, Macular Degeneration Cardiovascular History: Reports: High Cholesterol, Hypertension Respiratory History: Reports: Other (See Below) Other Respiratory History: pneumonia Gastrointestinal History: Reports: None Genitourinary History: Reports: Urinary Incontinence Musculoskeletal History: Reports: Arthritis, Fracture, Osteoporosis Other Musculoskeletal History: hammer toe left Psychiatric History: Reports: Anxiety Endocrine/Metabolic History: Reports: Osteoporosis - Infectious Disease History Infectious Disease History: Reports: Chicken Pox, Measles - Past Surgical History HEENT Surgical History: Reports: Cataract Surgery, Laser Surgery, Tonsillectomy GI Surgical History: Reports: Appendectomy, Cholecystectomy, Colonoscopy Musculoskeletal Surgical History: Reports: Carpal Tunnel, Shoulder Surgery Social & Family History - Family History Family Medical History: Noncontributory - Tobacco Use Smoking Status *Q: Never Smoker - Caffeine Use Caffeine Use: Reports: Coffee - Recreational Drug Use Recreational Drug Use: No Review of Systems - Review of Systems Review Of Systems: Comprehensive ROS is negative, except as noted in HPI. (normal state of health before injury last evening) Reason Not Obtained: no acute concerns before injury last evening ED EXAM, GENERAL - Physical Exam Exam: See Below Exam Limited By: No Limitations (very ahrd of hearing and difficult to understadn due to delayed speach and simple responses) General Appearance: Alert, Moderate Distress (right shoulder pain) Eye Exam: Bilateral Eye: Normal Inspection Ears: Normal External Exam, Hearing Loss Nose: Other (Deffered with mask use) Throat/Mouth: Other (Deffered with mask use) Neck: Normal Inspection (slight trapezius pain. ) Respiratory/Chest: Lungs Clear, Normal Breath Sounds (thin ) Cardiovascular: Normal Peripheral Pulses, Regular Rate, Rhythm Extremities: Normal Capillary Refill, Arm Pain (right shoulder pain to palpation and limited ROM). No: Normal Range of Motion (right shoulder limited ROM due to pain. Right elbow and wrist full ROM without pain. ) Neurological: Alert, Normal Gait Psychiatric: Flat Affect Skin Exam: Warm, Dry, Intact, Normal Color Lymphatic: No Adenopathy ED TRAUMA EXTREMITY PROCEDURES - Joint Reduction Right Shoulder Sedation: Conscious Sedation (Propofol 50-100mg with Dr Goodson at bedside. Repeat reduction attempt successful with Dr Goodson. ) Pre-Procedure NV Status: Normal Technique: Traction/Counter Traction (first attempt does not appear to be reduced. Repeat attempt will be completed) Number of Attempts: 2 Post-Reduction Imaging: Completely Reduced Joint Reduction Complications: Yes Course - Vital Signs Last Recorded V/S: Last Vital Signs Temp 37.1 C 06/07/20 14:26 Pulse 59 L 06/07/20 16:55 Resp 11 L 06/07/20 16:55 BP 191/77 H 06/07/20 16:55 Pulse Ox 96 06/07/20 16:55 - Orders/Labs/Meds Orders: Active Orders 24 hr Category Date Time Status Ambulate [RC] PER UNIT ROUTINE Care 06/07/20 17:36 Active Peripheral IV Care [RC] . DIRECTED Care 06/07/20 15:55 Active Shoulder 1V Rt [CR] Stat Exams 06/07/20 17:00 Taken Shoulder Comp Rt [CR] Stat Exams 06/07/20 15:29 Taken Shoulder Comp Rt [CR] Stat Exams 06/07/20 16:13 Taken Sodium Chloride 0.9% [Saline Flush] Med 06/07/20 15:55 Active 10 ml FLUSH ASDIRECTED PRN DME for Discharge [COMM] Stat Oth 06/07/20 15:30 Ordered Peripheral IV Insertion Adult [OM.PC] Urgent Oth 06/07/20 15:55 Ordered Medication Orders Sodium Chloride (Saline Flush) 10 ml FLUSH ASDIRECTED PRN PRN Reason: Keep Vein Open Last Admin: 06/07/20 16:52 Dose: 10 ml Documented by: ANA MARÍA Meds: Medications Generic Name Dose Route Start Last Admin Trade Name Freq PRN Reason Stop Dose Admin Sodium Chloride 10 ml 06/07/20 15:55 06/07/20 16:52 Saline Flush FLUSH 10 ml ASDIRECTED PRN Administration Keep Vein Open Discontinued Medications Generic Name Dose Route Start Last Admin Trade Name Freq PRN Reason Stop Dose Admin Hydrocodone Bitart/Acetaminophen 1 tab 06/07/20 15:30 06/07/20 15:46 Bivins 325-5 Mg PO 06/07/20 15:31 1 tab ONETIME ONE Administration Propofol 50 - 100 mg 06/07/20 15:55 06/07/20 16:34 Diprivan 20 Ml IVPUSH 06/07/20 15:56 50 mg ONETIME ONE Administration Propofol 50 mg 06/07/20 17:00 06/07/20 17:12 Diprivan 20 Ml IVPUSH 06/07/20 17:01 50 mg ONETIME ONE Administration - Radiology Interpretation Free Text/Narrative:: Right Shoulder: Dislocation without fractures noted. Images read by myself during ER visit. Post Reduction Film: dislocation remains. Images read by myself and Dr Goodson Repeat Shoulder reduction attempt. Post Reduction Film: Reduced shoulder dislocation. Images read by myself and Dr Goodson. Departure - Departure Time of Disposition: 18:00 Disposition: Home, Self-Care 01 Clinical Impression: Shoulder dislocation, recurrent, Elevated blood pressure reading - Discharge Information Prescriptions: Acetaminophen/HYDROcodone [Bivins 325-5 MG] 1 - 2 tab PO Q6H PRN 5 Days #12 tab PRN Reason: Pain (Severe 7-10) Instructions: Shoulder Dislocation, How To Use a Sling Referrals: Pippa Spence PA [Primary Care Provider] - Mikie Lan MD [Physician] - (Call Monday am for appointment this week or early next ) Forms: ED Department Discharge Additional Instructions: 1. Ice 15-20 minutes 3-4 times per day. Limit use her comfort. 2. Wear sling at all times. Gentle ROM exercises 2-3 times per day (circular motion) to prevent frozen shoulder. 3. Call PCP for recheck this week or early next if continued pain concerns. 4. Referred to Orthopedic clinic for recheck later this week or early next to ensure improvement and normal use. 5. Bivins 1-2 tablets every 6-8 hours for moderate to severe pain. #10 INSTYMED. 6. Return to ER if recurrence or new pain concerns. Sepsis Event Note (ED) - Evaluation Sepsis Screening Result: No Definite Risk - Focused Exam Vital Signs: Vital Signs Temp Pulse Resp BP Pulse Ox 06/07/20 16:55 59 L 11 L 191/77 H 96 06/07/20 14:40 59 L 16 187/78 H 99 06/07/20 14:26 37.1 C 66 16 211/79 H 96 - My Orders Last 24 Hours: My Active Orders 06/07/20 15:29 Shoulder Comp Rt [CR] Stat 06/07/20 15:30 DME for Discharge [COMM] Stat 06/07/20 15:55 Peripheral IV Care [RC] . DIRECTED Sodium Chloride 0.9% [Saline Flush] 10 ml FLUSH ASDIRECTED PRN Peripheral IV Insertion Adult [OM.PC] Urgent 06/07/20 16:13 Shoulder Comp Rt [CR] Stat 06/07/20 17:00 Shoulder 1V Rt [CR] Stat 06/07/20 17:36 Ambulate [RC] PER UNIT ROUTINE - Assessment/Plan Last 24 Hours: My Active Orders 06/07/20 15:29 Shoulder Comp Rt [CR] Stat 06/07/20 15:30 DME for Discharge [COMM] Stat 06/07/20 15:55 Peripheral IV Care [RC] . DIRECTED Sodium Chloride 0.9% [Saline Flush] 10 ml FLUSH ASDIRECTED PRN Peripheral IV Insertion Adult [OM.PC] Urgent 06/07/20 16:13 Shoulder Comp Rt [CR] Stat 06/07/20 17:00 Shoulder 1V Rt [CR] Stat 06/07/20 17:36 Ambulate [RC] PER UNIT ROUTINE
[2020-06-07 19:04] VITALS: BP 192/75; PULSE 65
--- NOTE | 2020-06-08 10:49 | CR ---
Shoulder Comp Rt, Shoulder Comp Rt, Shoulder 1V Rt CLINICAL HISTORY: Pain, limited range of motion FINDINGS: There is an anterior inferior dislocation of the glenohumeral joint. There is some calcific or ossific density adjacent to the posterior margin of the acetabulum. There is spurring and calcification at the AC joint. IMPRESSION: Anterior dislocation of the glenohumeral joint Reticular densities are likely chronic calcifications Shoulder 2V Rt CLINICAL HISTORY: Postreduction FINDINGS: AP and oblique views of the right shoulder show incomplete reduction of the anterior dislocation IMPRESSION: Incomplete reduction Shoulder 1V Rt CLINICAL HISTORY: Post reduction #2 FINDINGS: There is reduction of the previous anterior dislocation. There is some periarticular calcification likely within tendons. IMPRESSION: Reduction of previous anterior dislocation
== END 2020-06-07 19:04 | disposition home or self-care (01) ==
LOC: JP.ED 13:01
DX: M24.411 Recurrent dislocation, right shoulder (principal); I10 Essential (primary) hypertension; F41.9 Anxiety disorder, unspecified; Z90.49 Acquired absence of other specified parts of digestive tract; Z79.82 Long term (current) use of aspirin; Z79.899 Other long term (current) drug therapy; W22.8XXA Striking against or struck by other objects, initial encounter; Y93.01 Activity, walking, marching and hiking; Y92.009 Unspecified place in unspecified non-institutional (private) residence as the place of occurrence of the external cause
CPT/HCPCS: 23650; 73020; 73030; 99152; 99283; A9270; J2704